=== PATIENT | male | born 1995 | race Caucasian/White ===

== ENCOUNTER 2020-07-28 11:30 | Outpatient (RCR) | payer OTHER, SELFPAY ==
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
[2020-07-15 12:51] VITALS: BMI 18.1
--- NOTE | 2020-07-15 13:26 | HO.PS.ADMBH ---
HPI Chief Complaint: depression Sources of Information: patient interviewed, chart reviewed and crisis/core team assessment reviewed HPI Narrative: Pt is a 24 year-old male with hx of MDD alcohol use who self referred himself to PHP due to increased depression, feeling hopeless, helpless, anhedonia, passive suicidal ideation but denies any plan or intent. He also reports increasing alcohol use. He denies hx of VH/AH. He reports his sleep is poor. He also reports nightmares related to past trauma. HIs appetite is fair. He denies signs of hypomania/aguilar Past Psychiatric History: Inpatient: none OP: none Suicide attempts: none Medication trials: wellbutrin, xanax, prozac Medical Evaluation Reviewed: Yes FORMERLY [facility] Medical History (Updated 07/19/20 @ 15:06 by Pari Linn) No known health problems Diagnostics Vital Signs (24Hr): Body Mass Index 18.1 Meds/Allergies Allergies Allergies Allergy/AdvReac Type Severity Reaction Status Date / Time No Known Allergies Allergy Verified 07/15/20 11:32 Mental Status Exam Mental Status Exam Narrative: Appearance: casually groomed, fair hygiene, in NAD Behavior: calm, cooperative Psychomotor: no agitation or retardation noted Speech: clear, normal rate/rhythm/volume, spontaneous TP: linear TC: no signs of psychosis, hopeless/helpless Mood: depressed Affect:blunted SI:passive denies plano or intent HI:none AH/VH:none Delusions:none Insight/judgment:fair x 2. Memory/cog: alert, oriented x 3. Grossly intact to conversational testing. Assessment & Plan Assessment & Plan (1) MDD (major depressive disorder), recurrent episode, moderate: Status: Acute Code(s): F33.1 - Major depressive disorder, recurrent, moderate Assessment and Plan: 1. Start Lexapro 10mg po daily for depression 2. Periactin 4mg po qhs for nightmares- note that pt is on spironolactone already, but if periactin ineffective can try prazosin. Certification I certify that partial hospital treatment is medically necessary due to the symptoms and problems resulting from the patient's mental illness and the failure to treat the patient at the partial hospital level of care would likely result in the patient requiring inpatient psychiatric care which could not be prevented at a less intensive level of care. Telehealth Telehealth Location of provider rendering services: practice address Location of patient: address on file Patient Identification confirmed using: Name, : Yes Telehealth method: video Patient verbally consented to treatment: Yes Patient verbally consented to billing insurance company: Yes Patient informed of any privacy concerns related to visit: Yes Time spent with patient (mins): 30
--- NOTE | 2020-07-15 14:45 | PC.NURSE ---
case opened in treatment team
--- NOTE | 2020-07-16 08:25 | PC.NURSE ---
Reviewed treatment plan with client He has a therapist and his PCP prescribes his medication. He does not want to get a separate med provider.
--- NOTE | 2020-07-20 16:04 | P.EN_ITS ---
Event Note Date of Service: 07/20/20 Event Note: Pt had a scheduled PHP medication appt 2pm which they did not atte nd.
--- NOTE | 2020-07-21 14:52 | HO.PHPPROGNO ---
Subjective Subjective Date of Service: 07/21/20 Reason For Visit: depression Medication Compliance: Yes Side effects from medications: No Review of Systems Acute medical concerns: No Medical Review of Systems: unchanged Review of Systems Review of Systems Yes all other systems are reviewed and are negative Mental Status Exam Mental Status Exam Patient Appearance: Well Grooomed Patient Orientation: Person, Place, Time and Situation Level of Consciousness: Awake Patient Behavior: Appropriate Mood Description: Calm Affect Description: Appropriate Patient Cognition Impaired: No Ability to Follow Directions: Good Speech Pattern: Clear and Coherent Memory Description: Intact Hallucinations: None Delusions: Not Present Thought Process: Goal Oriented Thought Content: positive for Intact Judgement: Good Judgement and Insight: insight improved Diagnostics Vital Signs (24Hr): Body Mass Index 18.1 Assessment & Plan Assessment & Plan (1) MDD (major depressive disorder), recurrent episode, moderate: Status: Acute Code(s): F33.1 - Major depressive disorder, recurrent, moderate Assessment and Plan: The patient is a 24 year old male patient with a past history of alcohol use disorder and depressive symptoms referred for exacerbation of dysphoria. He was just started on Lexapro to target his depression. So far, he denied side effects but also, he denied major improvement of his dysphoria. So far, he has been taking it for only a few days. We discussed options and he agreed to reasses with the same regimen in the next days. Patient educated on: diagnosis, medication risk/benefits and therapeutic strategies Informed Consent: understands Reason for contiued partial hosp. stay Substantial Risk for: inability to function Certification I certify that partial hospital treatment is medically necessary due to the symptoms and problems resulting from the patient's mental illness and the failure to treat the patient at the partial hospital level of care would likely result in the patient requiring inpatient psychiatric care which could not be prevented at a less intensive level of care. Greater than 50% of the session was spent on counseling and/or coordination of care Discharge Plan Discharge Attending provider: Hasmukh Quarles Medications: New escitalopram oxalate [Lexapro] 10 mg tablet 10 mg PO DAILY Qty: 10 RF: 0 cyproheptadine 4 mg tablet 4 mg PO BEDTIME Qty: 10 RF: 0 No Action estradiol 2 mg Tablet 2 mg PO DAILY RF: 0 bupropion HCl [Wellbutrin XL] 300 mg Tablet Extended Release 24 Hr 300 mg PO DAILY RF: 0 bupropion HCl [Wellbutrin XL] 150 mg Tablet Extended Release 24 Hr 150 mg PO DAILY RF: 0 estradiol 2 mg Tablet 4 mg PO BEDTIME RF: 0 spironolactone 50 mg Tablet 75 mg PO BID RF: 0
--- NOTE | 2020-07-27 14:06 | HO.PHPPROGNO ---
Subjective Subjective Date of Service: 07/27/20 Reason For Visit: depression Interim History: The patient reported improvement of dysphoria with Lexapro. She had a previous script of Prozac a year ago that she has not taken. No safety concerns, content with the current treatment. She admitted sporadic use of alcohol, mostly on weekends. Medication Compliance: Yes Side effects from medications: Yes Review of Systems Review of Systems Yes all other systems are reviewed and are negative Mental Status Exam Mental Status Exam Patient Appearance: Well Grooomed Patient Orientation: Person, Place, Time and Situation Level of Consciousness: Awake and Appropriate Patient Behavior: Appropriate Mood Description: Calm and Appropriate Affect Description: Calm and Appropriate Patient Cognition Impaired: No Ability to Follow Directions: Good Speech Pattern: Clear Memory Description: Intact Hallucinations: None Delusions: Not Present Thought Process: Goal Oriented Thought Content: positive for Intact Judgement: Fair Diagnostics Vital Signs (24Hr): Body Mass Index 18.1 Assessment & Plan Assessment & Plan (1) MDD (major depressive disorder), recurrent episode, moderate: Status: Acute Code(s): F33.1 - Major depressive disorder, recurrent, moderate Assessment and Plan: Stable, continue with Lexapro. Instructed not to take the old script of Prozac. F/U as per protocol Certification I certify that partial hospital treatment is medically necessary due to the symptoms and problems resulting from the patient's mental illness and the failure to treat the patient at the partial hospital level of care would likely result in the patient requiring inpatient psychiatric care which could not be prevented at a less intensive level of care. Greater than 50% of the session was spent on counseling and/or coordination of care Discharge Plan Discharge Attending provider: Hasmukh Quarles Medications: New escitalopram oxalate [Lexapro] 10 mg tablet 10 mg PO DAILY Qty: 10 RF: 0 cyproheptadine 4 mg tablet 4 mg PO BEDTIME Qty: 10 RF: 0 escitalopram oxalate [Lexapro] 10 mg tablet 10 mg PO DAILY Qty: 30 RF: 0 No Action estradiol 2 mg Tablet 2 mg PO DAILY RF: 0 bupropion HCl [Wellbutrin XL] 300 mg Tablet Extended Release 24 Hr 300 mg PO DAILY RF: 0 bupropion HCl [Wellbutrin XL] 150 mg Tablet Extended Release 24 Hr 150 mg PO DAILY RF: 0 estradiol 2 mg Tablet 4 mg PO BEDTIME RF: 0 spironolactone 50 mg Tablet 75 mg PO BID RF: 0 Telehealth Telehealth Location of provider rendering services: practice address Location of patient: address on file Patient Identification confirmed using: Name, : Yes Telehealth method: video Patient verbally consented to treatment: Yes Patient verbally consented to billing insurance company: Yes Patient informed of any privacy concerns related to visit: Yes Time spent with patient (mins): 15
--- NOTE | 2020-07-28 15:15 | PC.NURSE ---
Left message for Norma Melendez re clients discharged from PHP
== END 2020-07-28 23:55 | disposition home or self-care (01) ==
LOC: HO.PHPA 11:30
PROVIDERS: Visit Provider Psychiatry & Neurology Psychiatry
DX: F33.1 Major depressive disorder, recurrent, moderate (principal)
CPT/HCPCS: 90791; 90853; 99212; 99213

== ENCOUNTER 2023-06-13 23:20 | Emergency (ER) | payer OTHER, SELFPAY ==
--- NOTE | ~2023-06-13 | XR_ITS ---
EXAMINATION: XR ABDOMEN KUB CLINICAL INDICATION: Foreign body. COMPARISON: None available. TECHNIQUE: AP view of the abdomen. FINDINGS: The bowel gas pattern is normal with no evidence of ileus or obstruction. No unusual soft tissue calcifications are noted. There is a radiopaque foreign body overlying the rectum measuring up to 8.5 cm in length. The bones are unremarkable. XR/XR KUB IMPRESSION: 1. Radiopaque foreign body overlying the rectum measuring up to 8.5 cm in length. 2. Nonobstructive bowel gas pattern.
[2023-06-13 23:56] VITALS: BP 114/70; PULSE 81; RESP 16; TEMP 36.6; O2SAT 98; BMI 21.5
--- NOTE | 2023-06-14 00:49 | ED.GENADULT ---
HPI - General Adult General Chief complaint: General Medical Stated complaint: Fb in anus Time Seen by Provider: 06/14/23 00:32 Source: patient Mode of arrival: ambulatory Limitations: no limitations History of Present Illness HPI narrative: 27 yo male no PMH was celebrating with his partner using an anal plug when it got lost. this occurred about 1 hour prior to arrival. he has no pain. MD complaint: anal FB Onset (ago): hour(s) (1) Location: genitals Radiation: non-radiation Severity: mild Relieving factors: none Exacerbating factors: none Associated symptoms: denies other symptoms Treatments prior to arrival: none Related Data Home Medications Medication Instructions Recorded Confirmed bupropion HCl 150 mg 24 hr tablet, 150 mg PO DAILY 07/15/20 07/15/20 extended release (Wellbutrin XL) bupropion HCl 300 mg 24 hr tablet, 300 mg PO DAILY 07/15/20 07/15/20 extended release (Wellbutrin XL) estradiol 2 mg tablet 2 mg PO DAILY 07/15/20 07/15/20 estradiol 2 mg tablet 4 mg PO BEDTIME 07/15/20 07/16/20 spironolactone 50 mg tablet 75 mg PO BID 07/15/20 07/15/20 Previous Rx's Medication Instructions Recorded cyproheptadine 4 mg tablet 4 mg PO BEDTIME #10 tabs 07/15/20 escitalopram oxalate 10 mg tablet 10 mg PO DAILY #30 tabs 07/27/20 (Lexapro) Allergies Allergy/AdvReac Type Severity Reaction Status Date / Time No Known Allergies Allergy Verified 06/13/23 23:56 Review of Systems Review of Systems: Constitutional : No Fever, No Chills, No Fatigue ENT/Mouth : No sore throat, No Rhinorrhea Eyes: No Eye Pain, No Swelling, No Redness Cardiovascular : No Chest Pain, No SOB, No Dyspnea on Exertion Respiratory : No Cough, No Sputum Gastrointestinal : No Nausea, No Vomiting, No Diarrhea, No abdominal Pain Genitourinary : No Dysuria, No Urinary Frequency, No Hematuria, Musculoskeletal : No joint pain, No Myalgias, No Joint Swelling Skin : No Skin Lesions, No rash Neuro : No Weakness, No Numbness, No Dizziness, no Headache Psych : No Anxiety/Panic, No Depression All other systems reviewed and are negative [facility] Past Medical History Attestation statement: The following information was validated with the patient. Medical History No known health problems Social History Social History (Updated 06/14/23 @ 00:55 by Rocío Nix DO) Household Members: Other Household Members Other:: Room mate Patient Tobacco Use Status: Tobacco use Unknown Physical Exam ED Vital Signs: Vital Signs - 24 hr 06/13/23 23:56 Temperature 97.9 F Pulse Rate 81 Respiratory Rate 16 Blood Pressure 114/70 Pulse Oximetry 98 Oxygen Delivery Method Room Air BMI result Body Mass Index 21.5 Appearance: Alert. Oriented X3. No acute distress. Eyes: Pupils equal, round and reactive to light. ENT: Pharynx normal. Neck: Normal inspection. Neck supple. CVS: Normal heart rate and rhythm. Pulses normal. Respiratory: No respiratory distress. Breath sounds normal. Abdomen: Soft and nontender. no peritoneal signs Rectal: I can feel soft silicone toy right on entrance of rectal exam - lubricated with significant amount of lube and then using two fingers grasped the edge of the lyons which was flexible and soft and pulled out without issue pateint was in lateral decubitus position right side - tolerated well had no pain. simple removal. Skin: Skin warm and dry. Normal skin color. Normal skin turgor. Extremities: No lower extremity edema. No calf ttp Neuro: Oriented X 3. No motor deficit. No sensory deficit. Course Course Course Narrative: on repeat exam no bleeding feeling fine joking and has no abdominal pain Procedures Foreign Body Removal Time Out Performed: yes Site: rectum Description of foreign body: other (silicon anal plug) Sedation/Analgesia: none Technique: manual removal (was removed easily and felt right on digital exam) Confirmed by:: palpation Complications: none Post-procedure exam: awake, alert Neurovascular: no change from pre-procedure Medical Decision Making Medical Decision Making MDM Narrative: 27 yo male with rectal FB - soft silicone after sexual activity at this time will obtain xray and attempt bedside digital removal and possible conscious sedation if xray shows it is in reach. Patient aware and agrees. Differential Diagnosis Differential Diagnoses: The differential diagnosis associated with the presentation includes rectal FB Independent Interpretation I performed an independent interpretation of an: Plain X-Ray (FB noted) Radiology Impression Discussion of test interpretation with radiology: I have reviewed the radiologist's reading. Independent Historian Clinical information obtained from an independent historian. History obtained from or confirmed by: Spouse Discharge Plan Discharge Clinical Impression: FB anus/rectum Qualifiers: Encounter type: initial encounter Qualified Code(s): T18.5XXA - Foreign body in anus and rectum, initial encounter Patient Disposition: Home, Self-Care Instructions: Rectal Foreign Body (ED) Additional Instructions: you might have scant mucousy blood for the next day or two - dripping blood or blood clots is not normal seek care if this happens. return for fevers and severe abdominal pain. obviously given your rectum a rest for the next couple of weeks then it's okay to resume normal sexual activities. Prescriptions: No Action estradiol 2 mg Tablet 2 mg PO DAILY bupropion HCl [Wellbutrin XL] 300 mg Tablet Extended Release 24 Hr 300 mg PO DAILY bupropion HCl [Wellbutrin XL] 150 mg Tablet Extended Release 24 Hr 150 mg PO DAILY estradiol 2 mg Tablet 4 mg PO BEDTIME spironolactone 50 mg Tablet 75 mg PO BID cyproheptadine 4 mg tablet 4 mg PO BEDTIME Qty: 10 0RF escitalopram oxalate [Lexapro] 10 mg tablet 10 mg PO DAILY Qty: 30 0RF
== END 2023-06-14 01:30 | disposition home or self-care (01) ==
LOC: HO.ED 06-14 01:05
PROVIDERS: Emergency Provider Emergency Medicine
DX: T18.5XXA Foreign body in anus and rectum, initial encounter (principal); W44.8XXA Other foreign body entering into or through a natural orifice, initial encounter; Y93.89 Activity, other specified; Y92.013 Bedroom of single-family (private) house as the place of occurrence of the external cause; Y99.9 Unspecified external cause status
CPT/HCPCS: 74018; 99283; 99284

== ENCOUNTER 2023-11-12 07:33 | Inpatient (IN) | payer OTHER, SELFPAY ==
[2023-11-12 08:01] VITALS: BP 118/71; PULSE 72; RESP 16; TEMP 36.6; O2SAT 98; BMI 23.6
[2023-11-12 08:16] VITALS: RESP 16
--- NOTE | 2023-11-12 08:16 | PC.NURSE ---
Marty comes to the ED today reporting SI with multiple plans. patient reports they attempted to take their life by overdose last night on 4mg Klonopin. Patient reports that they are also willing to jump from high surface. Patient is calm and cooperative, help seeking. Reporting that he is at his wits end and figured they would self present today for help Patient reports they were supposed to start PHP on but felt like they couldnt make it until then. Alert and oriented x4, respirations even and unlabored, skin pwd, no apparent distress noted at this time
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
[2023-11-12 08:47] LABS: MANUAL DIFF FLAG NO
[2023-11-12 08:49] LABS: Eosinophils Absolute Auto 0.3 X10*3/uL (0.0-0.4); Eosinophils Percent Auto 7.9 % (0-4); Hemoglobin 12.3 g/dl (14.0-18.0); Imm Gran Abs Auto 0.01 X10*3/uL (0.00-0.03); Imm Gran Pct Auto 0.3 % (0.0-0.4); Lymphocytes Absolute Auto 1.5 X10*3/uL (1.2-4.9); Lymphocytes Percent Auto 37.6 % (20-40); Mean Corpuscular HGB Conc 34.2 g/dl (31.0-36.0); Mean Corpuscular Volume 96.5 fL (80.0-98.0); Monocytes Absolute Auto 0.4 X10*3/uL (0.1-1.2); Monocytes Percent Auto 10.7 % (2-11); Neutrophils Absolute Auto 1.7 x10*3/uL (2.0-8.3); Neutrophils Percent Auto 42.5 % (45-73); Platelet Count 205 X10*3/uL (160-400); Red Blood Count 3.73 X10*6/uL (4.60-5.80); Red Cell Distribution Width 12.1 % (11.0-16.0); White Blood Count 3.9 X10*3/uL (4.8-10.8)
[2023-11-12 08:58] LABS: Amphetamine Screen Urine Not Detected (Not Detect); Barbiturates, Urine Not Detected (Not Detect); Benzodiazepines Screen Urine Not Detected (Not Detect); Buprenorphine Scr Not Detected (Not Detect); Cannabinoid Screen Urine POSITIVE (Not Detect); Cocaine Screen Urine POSITIVE (Not Detect); Fentanyl, urine Not Detected (Not Detect); Methadone Screen, Urine Not Detected (Not Detect); Opiate Screen Urine Not Detected (Not Detect); Oxycodone Screen Urine Not Detected (Not Detect); Phencyclidine Screen Urine Not Detected (Not Detect)
[2023-11-12 09:01] LABS: Appearance Urine Clear; Color Urine Yellow; Glucose Urine UA Negative (Negative); Leukocyte Esterase Urine Negative (Negative); Nitrite Urine Negative (Negative); PH 6.5 (5.0-9.0); UMIC TRIGGER UACC YES; Urine Blood Negative (Negative); Urine Ketones Trace mg/dL (Negative); Urine Protein 30 (1+) mg/dL (Neg-Trace)
[2023-11-12 09:05] LABS: Alanine Aminotransferase 7 U/L (0-40); Albumin Level 3.9 g/dL (3.5-5.0); Alkaline Phosphatase 50 U/L (39-117); Anion Gap 11 (12-20); Aspartate Amino Transferase 13 U/L (5-37); Bilirubin Total 0.5 mg/dL (0.0-1.0); Blood Urea Nitrogen 10 mg/dL (9-16); Calcium 8.8 mg/dL (8.4-10.2); Carbon Dioxide 27 mmol/L (22-29); Chloride 107 mmol/L (96-108); Creatinine Clr Calc Pharmacy 122.7; Estimated Glomerular Filt Rate > 60; Ethanol < 10 mg/dL; Glucose Random 92 mg/dL (60-115); Potassium 4.1 mmol/L (3.3-5.1); Sodium 141 mmol/L (135-145); Total Protein 6.4 g/dL (6.5-8.0)
[2023-11-12 09:06] LABS: Bacteria Urine None Seen (None Seen); Hyaline Casts Urine 0-2 /LPF (0-2); RBC Urine 0-2 /HPF (0-2); WBC Urine 0-5 /HPF (0-5)
[2023-11-12] MEDS: buPROPion HCl XL 300 MG TAB.ER.24H PO (10:13)
[2023-11-12] MEDS: ARIPiprazole 5 MG TABLET PO (10:13)
[2023-11-12] MEDS: Spironolactone 25 MG TABLET 75 MG PO ×2 (10:13→21:36)
[2023-11-12] MEDS: buPROPion HCl XL 150 MG TAB.ER.24H PO (10:13)
[2023-11-12] MEDS: estradioL 0.5 MG TABLET 2 MG PO (11:07)
--- NOTE | 2023-11-12 13:21 | ECG_ITS ---
Test Reason : CHECK QTC Blood Pressure : / mmHG Vent. Rate : 055 BPM Atrial Rate : 055 BPM P-R Int : 156 ms QRS Dur : 110 ms QT Int : 432 ms P-R-T Axes : 049 081 056 degrees QTc Int : 413 ms Sinus bradycardia Incomplete right bundle branch block Septal infarct , age undetermined Abnormal ECG No previous ECGs available Referred By: Tasha Lozano Electronically Signed By:RIZWAN WHITTAKER MD
[2023-11-12 14:55] LABS: Troponin-I High Sensitivity < 2.7 ng/L (<3.5-35.0)
[2023-11-12 17:30] VITALS: BP 118/73; PULSE 68; RESP 16; TEMP 36.8; O2SAT 100
[2023-11-12 17:31] VITALS: BMI 20.1
--- NOTE | 2023-11-12 18:53 | PC.NURSE ---
Pt is male --> female trans. Goes by the name Kinsey and pronouns she/they.
--- NOTE | 2023-11-12 19:12 | PC.ADMIT ---
Marty Agee who goes by the name ?Kinsey? is a 28 year old male to female transgender person who goes by the pronouns she/they.They were admitted to at 17:00 from [facility] [place] for the treatment of SI. The precipitants of their admission include a self-reported overdose of 4mg of Klonopin. Precipitants of their SI include the recent breakup with their partner, fighting with a lifelong friend, and feeling as if they are not deserving of friends/loved ones because ?they hurt everyone?. Pt was cooperative with the admission process, is help seeking, wants to develop better coping skills + get new meds.Pt rated 10/10 for both anxiety and depression. Pt affect was tearful when discussing recent stressors and otherwise flat. Pt reports poor appetite and sleep ? reports they believe they?ve unintentionally lost 10 lbs the last couple of months due to depression/poor appetite. Pt currently also struggles with substance use. Tox screen positive for cocaine and THC - ?I?ve been abusing adderall, marijuana, and cocaine?. Pt agreed to meet with Addiction nurse for MAT and other resources. Pt reported she is ?bummed? that her suicide attempt failed - ?I can?t even do that right? pt said. Pt reported they will let staff know if SI or HI occurs. No medical issues or physical complaints made. Pt is on 15 min checks and is psych/dual + structured group appropriate. ?
[2023-11-12 19:55] VITALS: BP 106/58; PULSE 63; RESP 16; TEMP 36.5; O2SAT 98
[2023-11-12] MEDS: estradioL 0.5 MG TABLET 4 MG PO (21:33)
[2023-11-12 21:36] VITALS: BP 106/58
[2023-11-13 07:35] VITALS: BP 100/55; PULSE 61; RESP 16; TEMP 36.5; O2SAT 99
[2023-11-13] MEDS: hydrOXYzine HCL 25 MG TABLET PO (08:58)
[2023-11-13] MEDS: buPROPion HCl XL 150 MG TAB.ER.24H PO (08:58)
[2023-11-13] MEDS: Spironolactone 25 MG TABLET 75 MG PO ×2 (08:58→21:13)
[2023-11-13] MEDS: buPROPion HCl XL 300 MG TAB.ER.24H PO (08:58)
[2023-11-13] MEDS: estradioL 0.5 MG TABLET 2 MG PO (08:58)
[2023-11-13] MEDS: ARIPiprazole 5 MG TABLET PO (08:59)
[2023-11-13 09:17] LABS: Alanine Aminotransferase 8 U/L (0-40); Albumin Level 4.3 g/dL (3.5-5.0); Alkaline Phosphatase 56 U/L (39-117); Anion Gap 13 (12-20); Aspartate Amino Transferase 13 U/L (5-37); Bilirubin Total 0.7 mg/dL (0.0-1.0); Blood Urea Nitrogen 12 mg/dL (9-16); Carbon Dioxide 26 mmol/L (22-29); Chloride 105 mmol/L (96-108); Cholesterol 133 mg/dL (<200); Creatinine Clr Calc Pharmacy 99.2; Estimated Glomerular Filt Rate > 60; Glucose Fasting 91 mg/dL (60-99); HDL Cholesterol 42 mg/dL (>40); LDL Cholesterol Calculated 70 mg/dL (<100); Potassium 4.4 mmol/L (3.3-5.1); Sodium 140 mmol/L (135-145); Total Protein 7.3 g/dL (6.5-8.0); Triglycerides 108 mg/dL (<150)
[2023-11-13 09:33] LABS: Calcium 9.9 mg/dL (8.4-10.2)
--- NOTE | 2023-11-13 12:06 | MHC.CLN ---
RE: CONSULT NEW PATIENT HT 5'9 WT 61.7KG IBW 160#+/-10% PT IS 85% IBW INDICATES MILDLY UNDER WT FOR HT; BMI 20.1 WNL PREVIOUS WT HX REVEALS FOLLOWS: 61.7KG (11/12/23)-9% WT LOSS X 5 MONTHS 72.6KG (11/12/23)-7% WT GAIN X 5 MONTHS 68KG (06/13/23) PT REPORTED 10# WT LOSS X COUPLE MONTHS R/T POOR INTAKE NOTED PER NSG: Pt reports poor appetite and sleep ? reports they believe they?ve unintentionally lost 10 lbs the last couple of months due to depression/poor appetite. Pt currently also struggles with substance use. Tox screen positive for cocaine and THC - ?I?ve been abusing adderall, marijuana, and cocaine?. RECENT DRUG ABUSE MAY BE CONTRIBUTOR TO WT LOSS DIET RX: REGULAR-APPROPRIATE REVIEWED LABS-ALL WNL PLAN: RECOMMEND RE-WEIGHT DUE TO WT DISCREPANCY ON 11/12/23; VERIFY ACCURATE WT MONITOR PO INTAKE CLOSELY IF PO INTAKE POOR <25% X 3 DAYS; RECOMMEND ADDING ENSURE PLUS HIGH PROTEIN BID TO PROVIDE 700KCALS, 40G PROTEIN
--- NOTE | 2023-11-13 12:16 | MHC.RECOVRN ---
Received Addiction Consult for amphetamine, cocaine, marijuana. Pt declined to meet with Addiction services.
--- NOTE | 2023-11-13 13:40 | P.HPPS_ITS ---
HPI Date of Service: 11/13/23 Chief Complaint: crisis SI Sources of Information: patient interviewed, chart reviewed and crisis/core team assessment reviewed HPI Subjective Notes: Jones Warning and Conditional Voluntary Narrative: Patient is a 28 year old transgender male to female with hx of who self presented to [facility] [place]/t suicidal ideation with plan to overdose or jump off a high surface secondary to increased depression for the past month. Per crisis report, pt reported a suicide attempt where they took 4mg of Klonopin. Pt reported recent break up in the past month and a falling out with a friend of 12 years. Pt believes they are not worthy of relationships or friends . pt denies HI/VH/AH. Pt's mother stated she is concern pt began to decline when pt was prescribed klonopin. Pt's mother picks up their medication to ensure pt is medication compliant. During admission assessment, patient present alert, oriented, calm and cooperative. Pt reports feeling depressed today;pt stated, I push away people who care about me. I do things to hurt people like betray their trust or say the wrong thing. So I decided it would be better for people to not have to deal with me anymore . Pt stated, I always want to . It's pretty normal for me. I just don't act on it . Pt denies hx of SA. They report hx of cutting, has not cut in over 2 years. Pt reports being medication compliant. Pt reports drinking 5 beers a day, using a gram of cocaine on the weekends and buying Adderall . UTOX positive for cocaine and marijuana. Pt reports this is their first inpatient psychiatric hospitalization; denies hx of detox or respite. They report hx of attending [place] at [facility] pt had intake scheduled for 11/15/2023. 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 Substance History: drink 5 beers a day, cocaine on the weekends, marijuana daily, Adderall daily. Trauma History: denies Diagnostics Vital Signs (24Hr): Vital Signs - 24 hr 11/12/23 17:30 11/12/23 19:55 11/12/23 21:36 Temperature 98.2 F 97.7 F Pulse Rate 68 63 Respiratory Rate 16 16 Blood Pressure 118/73 106/58 L 106/58 L Pulse Oximetry 100 98 Oxygen Delivery Method Room Air Room Air 11/13/23 07:35 Temperature 97.7 F Pulse Rate 61 Respiratory Rate 16 Blood Pressure 100/55 L Pulse Oximetry 99 Oxygen Delivery Method Room Air BMI result Body Mass Index 20.1 Labs 11/12/23 08:31 11/13/23 08:29 Labs: Laboratory Results - last 48 hr 11/12/23 11/12/23 11/13/23 08:31 08:43 08:29 WBC 3.9 L RBC 3.73 L Hgb 12.3 L Hct 36.0 L MCV 96.5 MCH 33.0 MCHC 34.2 RDW 12.1 Plt Count 205 MPV 10.0 Immature Gran % (Auto) 0.3 Neut % (Auto) 42.5 L Lymph % (Auto) 37.6 [place] % (Auto) 10.7 Eos % (Auto) 7.9 H Baso % (Auto) 1.0 Lymph # (Auto) 1.5 [place] # (Auto) 0.4 Eos # (Auto) 0.3 Baso # (Auto) 0.0 Abs Immat Gran (auto) 0.01 Absolute Neuts (auto) 1.7 L Absolute Nucleated RBC 0.000 Nucleated RBC % (auto) 0.0 Sodium 141 140 Potassium 4.1 4.4 Chloride 107 105 Carbon Dioxide 27 26 Anion Gap 11 L 13 BUN 10 12 Creatinine 0.88 0.95 Estim Creat Clear Calc 122.7 99.2 Estimated GFR > 60 > 60 Random Glucose 92 Fasting Glucose 91 Calcium 8.8 9.9 D Total Bilirubin 0.5 0.7 AST 13 13 ALT 7 8 Alkaline Phosphatase 50 56 Troponin I High Sens < 2.7 Total Protein 6.4 L 7.3 Albumin 3.9 4.3 Triglycerides 108 Cholesterol 133 LDL Cholesterol, Calc 70 HDL Cholesterol 42 Urine Color Yellow Urine Appearance Clear Urine pH 6.5 Ur Specific [place] 1.020 Urine Protein 30 (1+) H Urine Glucose (UA) Negative Urine Ketones Trace Urine Blood Negative Urine Nitrite Negative Ur Leukocyte Esterase Negative Urine RBC 0-2 Urine WBC 0-5 Ur Squamous Epith Cells 6-10 Urine Bacteria None Seen Hyaline Casts 0-2 Urine Opiates Screen Not Detected Ur Buprenorphine Scrn Not Detected Ur Oxycodone Screen Not Detected Urine Methadone Screen Not Detected Urine Fentanyl Screen Not Detected Ur Barbiturates Screen Not Detected Ur Phencyclidine Scrn Not Detected Ur Amphetamines Screen Not Detected U Benzodiazepines Scrn Not Detected Urine Cocaine Screen POSITIVE H U Marijuana (THC) Screen POSITIVE H Ethyl Alcohol < 10 Meds/Allergies Meds Home Medications ?Medication ?Instructions ?Recorded ?Confirmed ?Type bupropion HCl 150 mg 24 hr tablet, 150 mg PO DAILY 07/15/20 11/12/23 History extended release (Wellbutrin XL) bupropion HCl 300 mg 24 hr tablet, 300 mg PO DAILY 07/15/20 11/12/23 History extended release (Wellbutrin XL) estradiol 2 mg tablet 2 mg PO DAILY 07/15/20 11/12/23 History estradiol 2 mg tablet 4 mg PO BEDTIME 07/15/20 11/12/23 History spironolactone 50 mg tablet 75 mg PO BID 07/15/20 11/12/23 History aripiprazole 5 mg tablet 5 mg PO DAILY 11/12/23 11/12/23 History progesterone micronized 200 mg 200 mg PO DAILY 11/12/23 11/12/23 History capsule Allergies Allergies Allergy/AdvReac Type Severity Reaction Status Date / Time No Known Allergies Allergy Verified 11/12/23 08:02 Mental Status Exam Mental Status Exam Narrative: Pt is alert and oriented; behavior is cooperative and calm; dressed in casual attire; mood is described as depressed ; eye contact appropriate; Speech is normal rate, volume and not pressured; thought process is organized; Thought content is on tx; otherwise pertinent to relevant topics and without any delusional content, paranoid ideations or grandiosity; denies HI/VH/AH. Pt reports passive suicidal ideation; which they report is their baseline. Assessment & Plan Assessment & Plan (1) MDD (major depressive disorder), recurrent episode, moderate: Status: Acute Code(s): F33.1 - Major depressive disorder, recurrent, moderate (2) Alcohol use disorder: Status: Acute Code(s): F10.90 - Alcohol use, unspecified, uncomplicated (3) Cocaine use disorder: Status: Acute Code(s): F14.10 - Cocaine abuse, uncomplicated (4) Stimulant use disorder: Status: Acute Code(s): F15.90 - Other stimulant use, unspecified, uncomplicated Plan Patient is a 28 year old transgender male to female with hx of who self presented to [facility] [place]/t suicidal ideation with plan to overdose or jump off a high surface secondary to increased depression for the past month. Plan: CV 15 minute safety checks Continue home medications encourage groups CIWA obtain collateral discharge planning Patient educated on: diagnosis, medication risk/benefits, substance abuse and therapeutic strategies Informed Consent: understands Reason for continued inpatient stay Substantial Risk for: harm to self and med/psych decompensation Statement Statement: I have reviewed the history and physical and performed a pertinent examination on my patient. No changes have occurred unless specified. If the History and Physical was not performed prior to admission, the Hospitalist's service will be consulted for completing the admission physical. Time Spent With Patient Time: Total time managing care of this patient today _60___ minutes.
--- NOTE | 2023-11-13 15:50 | PC.NURSE ---
3 day notice signed with patient. Lennox SALGADO informed via text and Glenn CABA and Derek Cates MD informed via email.
[2023-11-13 20:00] VITALS: BP 117/65; PULSE 64; RESP 14; TEMP 36.9; O2SAT 99
[2023-11-13 21:10] VITALS: BP 100/64; PULSE 61; RESP 16
[2023-11-13] MEDS: estradioL 0.5 MG TABLET 4 MG PO (21:11)
[2023-11-14 07:50] VITALS: BP 112/65; PULSE 62; RESP 16; TEMP 36.6; O2SAT 99
--- NOTE | 2023-11-14 08:18 | P.PNPSI_ITS ---
Subjective Subjective Date of Service: 11/14/23 Reason For Visit: crisis SI Subjective Notes: 3 Day Interim History: Reviewed with Dr. Quarles. Active on unit, attending groups. Pt reports feeling anxious today; pt stated, I signed a 3 day notice because I want to go home. I don't feel comfortable here. I've calmed down and let things settle. I just want to go stay with my mom for a while . Pt denies SI/HI/VH/AH. 3 day up on 11/16/2023. Medication Compliance: Yes Side effects from medications: No Attending Groups: Yes Review of Systems Constitutional: Reports as per HPI Eyes: Reports as per HPI Reports as per HPI Cardiovascular: Reports as per HPI Respiratory: Reports as per HPI Gastrointestinal: Reports as per HPI Genitourinary: Reports as per HPI Musculoskeletal: Reports as per HPI Skin/Breast: Reports as per HPI Reports as per HPI Psychiatric: Reports as per HPI Endocrine: Reports as per HPI Hematologic/Lymphatic: Reports as per HPI Allergic/Immunologic: Reports as per HPI Mental Status Exam Mental Status Exam Narrative: Pt is alert and oriented; behavior is cooperative and calm; dressed in casual attire; mood is described as anxious ; eye contact appropriate; Speech is normal rate, volume and not pressured; thought process is organized; Thought content is on tx; otherwise pertinent to relevant topics and without any delusional content, paranoid ideations or grandiosity; denies SI/HI/VH/AH. Diagnostics Vital Signs (24Hr): Vital Signs - 24 hr 11/13/23 20:00 11/13/23 21:10 11/14/23 07:50 Temperature 98.5 F 97.9 F Pulse Rate 64 61 62 Respiratory Rate 14 16 16 Blood Pressure 117/65 100/64 112/65 Pulse Oximetry 99 99 Oxygen Delivery Method Room Air Room Air BMI result Body Mass Index 20.1 Labs 11/12/23 08:31 11/13/23 08:29 Labs: Laboratory Results - last 48 hr 11/12/23 11/12/23 11/13/23 08:31 08:43 08:29 WBC 3.9 L RBC 3.73 L Hgb 12.3 L Hct 36.0 L MCV 96.5 MCH 33.0 MCHC 34.2 RDW 12.1 Plt Count 205 MPV 10.0 Immature Gran % (Auto) 0.3 Neut % (Auto) 42.5 L Lymph % (Auto) 37.6 [place] % (Auto) 10.7 Eos % (Auto) 7.9 H Baso % (Auto) 1.0 Lymph # (Auto) 1.5 [place] # (Auto) 0.4 Eos # (Auto) 0.3 Baso # (Auto) 0.0 Abs Immat Gran (auto) 0.01 Absolute Neuts (auto) 1.7 L Absolute Nucleated RBC 0.000 Nucleated RBC % (auto) 0.0 Sodium 141 140 Potassium 4.1 4.4 Chloride 107 105 Carbon Dioxide 27 26 Anion Gap 11 L 13 BUN 10 12 Creatinine 0.88 0.95 Estim Creat Clear Calc 122.7 99.2 Estimated GFR > 60 > 60 Random Glucose 92 Fasting Glucose 91 Calcium 8.8 9.9 D Total Bilirubin 0.5 0.7 AST 13 13 ALT 7 8 Alkaline Phosphatase 50 56 Troponin I High Sens < 2.7 Total Protein 6.4 L 7.3 Albumin 3.9 4.3 Triglycerides 108 Cholesterol 133 LDL Cholesterol, Calc 70 HDL Cholesterol 42 Urine Color Yellow Urine Appearance Clear Urine pH 6.5 Ur Specific [place] 1.020 Urine Protein 30 (1+) H Urine Glucose (UA) Negative Urine Ketones Trace Urine Blood Negative Urine Nitrite Negative Ur Leukocyte Esterase Negative Urine RBC 0-2 Urine WBC 0-5 Ur Squamous Epith Cells 6-10 Urine Bacteria None Seen Hyaline Casts 0-2 Urine Opiates Screen Not Detected Ur Buprenorphine Scrn Not Detected Ur Oxycodone Screen Not Detected Urine Methadone Screen Not Detected Urine Fentanyl Screen Not Detected Ur Barbiturates Screen Not Detected Ur Phencyclidine Scrn Not Detected Ur Amphetamines Screen Not Detected U Benzodiazepines Scrn Not Detected Urine Cocaine Screen POSITIVE H U Marijuana (THC) Screen POSITIVE H Ethyl Alcohol < 10 Medications Medications Current Medications Acetaminophen (Acetaminophen 325 Mg Tablet) 650 mg PO Q6H PRN PRN Reason: Headache/Pain Mild Scale (1-3) Al Hydroxide/Mg Hydroxide (Magnesium Hydrox/Alum Hydrox 30 Ml Oral.Susp) 30 ml PO Q6H PRN PRN Reason: Heartburn/Nausea Aripiprazole (Aripiprazole 5 Mg Tablet) 5 mg PO DAILY [facility] Last Admin: 11/13/23 08:59 Dose: 5 mg Bupropion HCl (Bupropion Hcl Xl 150 Mg Tab.Er.24h) 150 mg PO DAILY [facility] Last Admin: 11/13/23 08:58 Dose: 150 mg Bupropion HCl (Bupropion Hcl Xl 300 Mg Tab.Er.24h) 300 mg PO DAILY [facility] Last Admin: 11/13/23 08:58 Dose: 300 mg Estradiol (Estradiol 0.5 Mg Tablet) 4 mg PO BEDTIME [facility] Last Admin: 11/13/23 21:11 Dose: 4 mg Estradiol (Estradiol 0.5 Mg Tablet) 2 mg PO DAILY [facility] Last Admin: 11/13/23 08:58 Dose: 2 mg Hydroxyzine HCl (Hydroxyzine Hcl 25 Mg Tablet) 25 mg PO Q6H PRN PRN Reason: Anxiety Last Admin: 11/13/23 08:58 Dose: 25 mg Lorazepam (Lorazepam 1 Mg Tablet) 1 mg PO Q4H PRN PRN Reason: CIWA 6-12 Lorazepam (Lorazepam 1 Mg Tablet) 2 mg PO Q4H PRN PRN Reason: CIWA 13 and above Magnesium Hydroxide (Milk Of Magnesia 30 Ml Oral.Susp) 30 ml PO DAILY PRN PRN Reason: Constipation Nicotine (Nicotine 21 Mg Patch.Td24) 21 mg TRANSDERMA DAILY [facility] Last Admin: 11/13/23 09:03 Dose: Not Given Nicotine Polacrilex (Nicotine Polacrilex 2 Mg Gum) 4 mg BUCCAL Q2H PRN PRN Reason: Nicotine Cravings Spironolactone (Spironolactone 25 Mg Tablet) 75 mg PO BID [facility]; Protocol Last Admin: 11/13/23 21:13 Dose: 75 mg Trazodone HCl (Trazodone Hcl 50 Mg Tablet) 50 mg PO BEDTIME MRX1 PRN PRN Reason: Insomnia Allergies Allergies Allergy/AdvReac Type Severity Reaction Status Date / Time No Known Allergies Allergy Verified 11/12/23 08:02 Assessment & Plan Assessment & Plan (1) MDD (major depressive disorder), recurrent episode, moderate: Status: Acute Code(s): F33.1 - Major depressive disorder, recurrent, moderate (2) Alcohol use disorder: Status: Acute Code(s): F10.90 - Alcohol use, unspecified, uncomplicated (3) Cocaine use disorder: Status: Acute Code(s): F14.10 - Cocaine abuse, uncomplicated (4) Stimulant use disorder: Status: Acute Code(s): F15.90 - Other stimulant use, unspecified, uncomplicated Plan Patient is a 28 year old transgender male to female with hx of who self presented to [facility] ER d/t suicidal ideation with plan to overdose or jump off a high surface secondary to increased depression for the past month. Plan: CV 15 minute safety checks Continue home medications encourage groups RICHARD obtain collateral discharge planning 11/13: Active on unit, attending groups. Pt reports feeling anxious today; pt stated, I signed a 3 day notice because I want to go home. I don't feel comfortable here. I've calmed down and let things settle. I just want to go stay with my mom for a while . Pt denies SI/HI/VH/AH. 3 day up on 11/16/2023. Patient educated on: diagnosis and medication risk/benefits Informed Consent: understands Reason for continued inpatient stay Substantial Risk for: med/psych decompensation Time Spent With Patient Time: Total time managing care of this patient today _20___ minutes.
[2023-11-14] MEDS: Spironolactone 25 MG TABLET 75 MG PO ×2 (08:44→22:15)
[2023-11-14] MEDS: ARIPiprazole 5 MG TABLET PO (08:44)
[2023-11-14] MEDS: buPROPion HCl XL 150 MG TAB.ER.24H PO (08:44)
[2023-11-14] MEDS: estradioL 0.5 MG TABLET 2 MG PO (08:45)
[2023-11-14] MEDS: buPROPion HCl XL 300 MG TAB.ER.24H PO (08:45)
[2023-11-14 20:00] VITALS: BP 106/72; PULSE 63; RESP 16; TEMP 36.9; O2SAT 95
[2023-11-14 22:15] VITALS: BP 110/68
[2023-11-14] MEDS: traZODone HCL 50 MG TABLET PO (22:17)
[2023-11-14] MEDS: estradioL 0.5 MG TABLET 4 MG PO (23:52)
[2023-11-15 07:40] VITALS: BP 138/67; PULSE 61; RESP 16; TEMP 36.8; O2SAT 99
[2023-11-15 08:36] VITALS: BP 138/67
[2023-11-15] MEDS: buPROPion HCl XL 300 MG TAB.ER.24H PO (08:36)
[2023-11-15] MEDS: buPROPion HCl XL 150 MG TAB.ER.24H PO (08:36)
[2023-11-15] MEDS: Spironolactone 25 MG TABLET 75 MG PO ×2 (08:36→22:01)
[2023-11-15] MEDS: ARIPiprazole 5 MG TABLET PO (08:36)
--- NOTE | 2023-11-15 09:05 | HO.PSYCHPN ---
Subjective Subjective Date of Service: 11/15/23 Reason For Visit: crisis SI Subjective Notes: 3 Day Interim History: Reviewed with Dr. Quarles. Pt reports feeling good today; pt stated, I feel better than when I came in. I think I needed time to be away from everything. I'm glad I didn't . What I did was stupid . Pt denies SI/HI/VH/AH. Pt reports they plan on staying with their mother for a week before returning to their apartment. Pt plans on following up with their outpatient providers and has an intake for PHP. 3 day up on 11/16/2023. Medication Compliance: Yes Side effects from medications: No Attending Groups: Yes Review of Systems Constitutional: Reports as per HPI Eyes: Reports as per HPI Reports as per HPI Cardiovascular: Reports as per HPI Respiratory: Reports as per HPI Gastrointestinal: Reports as per HPI Genitourinary: Reports as per HPI Musculoskeletal: Reports as per HPI Skin/Breast: Reports as per HPI Reports as per HPI Psychiatric: Reports as per HPI Endocrine: Reports as per HPI Hematologic/Lymphatic: Reports as per HPI Allergic/Immunologic: Reports as per HPI Mental Status Exam Mental Status Exam Narrative: Pt is alert and oriented; behavior is cooperative and calm; dressed in casual attire; mood is described as good ; eye contact appropriate; Speech is normal rate, volume and not pressured; thought process is organized; Thought content is on discharge; otherwise pertinent to relevant topics and without any delusional content, paranoid ideations or grandiosity; denies SI/HI/VH/AH. Diagnostics Vital Signs (24Hr): Vital Signs - 24 hr 11/14/23 20:00 11/14/23 22:15 11/15/23 07:40 Temperature 98.5 F 98.2 F Pulse Rate 63 61 Respiratory Rate 16 16 Blood Pressure 106/72 110/68 138/67 Pulse Oximetry 95 99 Oxygen Delivery Method Room Air Room Air 11/15/23 08:36 Temperature Pulse Rate Respiratory Rate Blood Pressure 138/67 Pulse Oximetry Oxygen Delivery Method BMI result Body Mass Index 20.1 Labs 11/12/23 08:31 11/13/23 08:29 Labs: Laboratory Results - last 48 hr 11/13/23 08:29 Sodium 140 Potassium 4.4 Chloride 105 Carbon Dioxide 26 Anion Gap 13 BUN 12 Creatinine 0.95 Estim Creat Clear Calc 99.2 Estimated GFR > 60 Fasting Glucose 91 Calcium 9.9 D Total Bilirubin 0.7 AST 13 ALT 8 Alkaline Phosphatase 56 Total Protein 7.3 Albumin 4.3 Triglycerides 108 Cholesterol 133 LDL Cholesterol, Calc 70 HDL Cholesterol 42 Medications Medications Current Medications Acetaminophen (Acetaminophen 325 Mg Tablet) 650 mg PO Q6H PRN PRN Reason: Headache/Pain Mild Scale (1-3) Al Hydroxide/Mg Hydroxide (Magnesium Hydrox/Alum Hydrox 30 Ml Oral.Susp) 30 ml PO Q6H PRN PRN Reason: Heartburn/Nausea Aripiprazole (Aripiprazole 5 Mg Tablet) 5 mg PO DAILY [facility] Last Admin: 11/15/23 08:36 Dose: 5 mg Bupropion HCl (Bupropion Hcl Xl 150 Mg Tab.Er.24h) 150 mg PO DAILY [facility] Last Admin: 11/15/23 08:36 Dose: 150 mg Bupropion HCl (Bupropion Hcl Xl 300 Mg Tab.Er.24h) 300 mg PO DAILY [facility] Last Admin: 11/15/23 08:36 Dose: 300 mg Estradiol (Estradiol 0.5 Mg Tablet) 4 mg PO BEDTIME [facility] Last Admin: 11/14/23 23:52 Dose: 4 mg Estradiol (Estradiol 0.5 Mg Tablet) 2 mg PO DAILY [facility] Last Admin: 11/14/23 08:45 Dose: 2 mg Hydroxyzine HCl (Hydroxyzine Hcl 25 Mg Tablet) 25 mg PO Q6H PRN PRN Reason: Anxiety Last Admin: 11/13/23 08:58 Dose: 25 mg Lorazepam (Lorazepam 1 Mg Tablet) 1 mg PO Q4H PRN PRN Reason: CIWA 6-12 Lorazepam (Lorazepam 1 Mg Tablet) 2 mg PO Q4H PRN PRN Reason: CIWA 13 and above Magnesium Hydroxide (Milk Of Magnesia 30 Ml Oral.Susp) 30 ml PO DAILY PRN PRN Reason: Constipation Nicotine (Nicotine 21 Mg Patch.Td24) 21 mg TRANSDERMA DAILY [facility] Last Admin: 11/15/23 08:38 Dose: Not Given Nicotine Polacrilex (Nicotine Polacrilex 2 Mg Gum) 4 mg BUCCAL Q2H PRN PRN Reason: Nicotine Cravings Spironolactone (Spironolactone 25 Mg Tablet) 75 mg PO BID [facility]; Protocol Last Admin: 11/15/23 08:36 Dose: 75 mg Trazodone HCl (Trazodone Hcl 50 Mg Tablet) 50 mg PO BEDTIME MRX1 PRN PRN Reason: Insomnia Last Admin: 11/14/23 22:17 Dose: 50 mg Allergies Allergies Allergy/AdvReac Type Severity Reaction Status Date / Time No Known Allergies Allergy Verified 11/12/23 08:02 Assessment & Plan Assessment & Plan (1) MDD (major depressive disorder), recurrent episode, moderate: Status: Acute Code(s): F33.1 - Major depressive disorder, recurrent, moderate (2) Alcohol use disorder: Status: Acute Code(s): F10.90 - Alcohol use, unspecified, uncomplicated (3) Cocaine use disorder: Status: Acute Code(s): F14.10 - Cocaine abuse, uncomplicated (4) Stimulant use disorder: Status: Acute Code(s): F15.90 - Other stimulant use, unspecified, uncomplicated Plan Patient is a 28 year old transgender male to female with hx of who self presented to [facility] ER d/t suicidal ideation with plan to overdose or jump off a high surface secondary to increased depression for the past month. Plan: CV 15 minute safety checks Continue home medications encourage groups [facility] obtain collateral discharge planning 11/13: Active on unit, attending groups. Pt reports feeling anxious today; pt stated, I signed a 3 day notice because I want to go home. I don't feel comfortable here. I've calmed down and let things settle. I just want to go stay with my mom for a while . Pt denies SI/HI/VH/AH. 3 day up on 11/16/2023. 11/14: Pt reports feeling good today; pt stated, I feel better than when I came in. I think I needed time to be away from everything. I'm glad I didn't . What I did was stupid . Pt denies SI/HI/VH/AH. Pt reports they plan on staying with their mother for a week before returning to their apartment. Pt plans on following up with their outpatient providers and has an intake for [facility]. 3 day up on 11/16/2023. Patient educated on: diagnosis, medication risk/benefits and therapeutic strategies Reason for continued inpatient stay Substantial Risk for: stable for discharge Time Spent With Patient Time: Total time managing care of this patient today _20___ minutes.
[2023-11-15] MEDS: estradioL 0.5 MG TABLET 2 MG PO (12:51)
--- NOTE | 2023-11-15 15:49 | P.DS_ITS ---
DS: Providers Provider Date of Service: 11/16/23 Date of admission: 11/12/23 15:38 Date of discharge: 11/16/23 Primary care physician: Unknown Physician Admitting clinician: Debo Cates Attending physician on admission: Hasmukh Quarles Consults: 11/12/23 17:56 Addiction Medicine Routine Consulting Provider: Addiction Covering Reason for consultation: amphetamine, cocaine, marijuana Has provider been notified: Yes Attending physician on discharge: Hasmukh Quarles DS: Diagnosis Discharge Diagnosis (1) MDD (major depressive disorder), recurrent episode, moderate: Status: Acute (2) Alcohol use disorder: Status: Acute (3) Cocaine use disorder: Status: Acute (4) Stimulant use disorder: Status: Acute DS: Medications Discharge Medications Home Medications: Home Medications ?Medication ?Instructions ?Recorded ?Confirmed bupropion HCl 150 mg 24 hr tablet, 150 mg PO DAILY 07/15/20 11/12/23 extended release (Wellbutrin XL) bupropion HCl 300 mg 24 hr tablet, 300 mg PO DAILY 07/15/20 11/12/23 extended release (Wellbutrin XL) estradiol 2 mg tablet 2 mg PO DAILY 07/15/20 11/12/23 estradiol 2 mg tablet 4 mg PO BEDTIME 07/15/20 11/12/23 spironolactone 50 mg tablet 75 mg PO BID 07/15/20 11/12/23 aripiprazole 5 mg tablet 5 mg PO DAILY 11/12/23 11/12/23 progesterone micronized 200 mg 200 mg PO DAILY 11/12/23 11/12/23 capsule Mental Status Exam Mental Status Exam Narrative: Pt is alert and oriented; behavior is cooperative and calm; dressed in casual attire; mood is described as good ; eye contact appropriate; Speech is normal rate, volume and not pressured; thought process is organized; Thought content is on discharge; otherwise pertinent to relevant topics and without any delusional content, paranoid ideations or grandiosity; denies SI/HI/VH/AH. Data Data Completed and Pending Completed studies during hospitalization [Text1]: 11/12/23 11/12/23 11/13/23 08:31 08:43 08:29 WBC 3.9 L RBC 3.73 L Hgb 12.3 L Hct 36.0 L MCV 96.5 MCH 33.0 MCHC 34.2 RDW 12.1 Plt Count 205 MPV 10.0 Immature Gran % (Auto) 0.3 Neut % (Auto) 42.5 L Lymph % (Auto) 37.6 [place] % (Auto) 10.7 Eos % (Auto) 7.9 H Baso % (Auto) 1.0 Lymph # (Auto) 1.5 [place] # (Auto) 0.4 Eos # (Auto) 0.3 Baso # (Auto) 0.0 Abs Immat Gran (auto) 0.01 Absolute Neuts (auto) 1.7 L Absolute Nucleated RBC 0.000 Nucleated RBC % (auto) 0.0 Sodium 141 140 Potassium 4.1 4.4 Chloride 107 105 Carbon Dioxide 27 26 Anion Gap 11 L 13 BUN 10 12 Creatinine 0.88 0.95 Estim Creat Clear Calc 122.7 99.2 Estimated GFR > 60 > 60 Random Glucose 92 Fasting Glucose 91 Calcium 8.8 9.9 D Total Bilirubin 0.5 0.7 AST 13 13 ALT 7 8 Alkaline Phosphatase 50 56 Troponin I High Sens < 2.7 Total Protein 6.4 L 7.3 Albumin 3.9 4.3 Triglycerides 108 Cholesterol 133 LDL Cholesterol, Calc 70 HDL Cholesterol 42 Urine Color Yellow Urine Appearance Clear Urine pH 6.5 Ur Specific [place] 1.020 Urine Protein 30 (1+) H Urine Glucose (UA) Negative Urine Ketones Trace Urine Blood Negative Urine Nitrite Negative Ur Leukocyte Esterase Negative Urine RBC 0-2 Urine WBC 0-5 Ur Squamous Epith Cells 6-10 Urine Bacteria None Seen Hyaline Casts 0-2 Urine Opiates Screen Not Detected Ur Buprenorphine Scrn Not Detected Ur Oxycodone Screen Not Detected Urine Methadone Screen Not Detected Urine Fentanyl Screen Not Detected Ur Barbiturates Screen Not Detected Ur Phencyclidine Scrn Not Detected Ur Amphetamines Screen Not Detected U Benzodiazepines Scrn Not Detected Urine Cocaine Screen POSITIVE H U Marijuana (THC) Screen POSITIVE H Ethyl Alcohol < 10 DS: Summary Hospital Course Hospital Course: Patient is a 28 year old transgender male to female with hx of who self presented to [facility] ER d/t suicidal ideation with plan to overdose or jump off a high surface secondary to increased depression for the past month. Per crisis report, pt reported a suicide attempt where they took 4mg of Klonopin. Pt reported recent break up in the past month and a falling out with a friend of 12 years. Pt believes they are not worthy of relationships or friends . pt denies HI/VH/AH. Pt's mother stated she is concern pt began to decline when pt was prescribed klonopin. Pt's mother picks up their medication to ensure pt is medication compliant. During admission assessment, patient present alert, oriented, calm and front desk coordinator perative. Pt reports feeling depressed today;pt stated, I push away people who care about me. I do things to hurt people like betray their trust or say the wrong thing. So I decided it would be better for people to not have to deal with me anymore . Pt stated, I always want to . It's pretty normal for me. I just don't act on it . Pt denies hx of SA. They report hx of cutting, has not cut in over 2 years. Pt reports being medication compliant. Pt reports drinking 5 beers a day, using a gram of cocaine on the weekends and buying Adderall . UTOX positive for cocaine and marijuana. Pt reports this is their first inpatient psychiatric hospitalization; denies hx of detox or respite. They report hx of attending PHP at [facility]; pt had intake scheduled for 11/15/2023. During hospital course, CV 15 minute safety checks Continue home medications encourage groups [facility] obtain collateral discharge planning Active on unit, attending groups. Pt reports feeling anxious today; pt stated, I signed a 3 day notice because I want to go home. I don't feel comfortable here. I've calmed down and let things settle. I just want to go stay with my mom for a while . Pt denies SI/HI/VH/AH. 3 day up on 11/16/2023. Pt reports feeling good today; pt stated, I feel better than when I came in. I think I needed time to be away from everything. I'm glad I didn't . What I did was stupid . Pt denies SI/HI/VH/AH. Pt reports they plan on staying with their mother for a week before returning to their apartment. Pt plans on following up with their outpatient providers and has an intake for PHP. 3 day up on 11/16/2023. Time spent discussing smoking cessation with patient: 3 to 10 minutes Status at Discharge Cognitive/behavioral status at discharge: Patient was interviewed prior to discharge and found to be fully oriented and without SI or HI. Patient has insight and demonstrates good judgment in terms of wanting to pursue treatment. Patient has a safety plan that includes presenting to the closest ER or calling 911 if feeling unsafe. Functional status at discharge: independent ambulation Overall status at discharge: patient is back to baseline Time Spent with Patient Time attestation: Total time managing care of this patient today _20___ minutes. Time spent: Less than 30 minutes Discharge Plan Discharge Anticipated Discharge Date/Time: 11/16/23 10:00 Patient Disposition: Home, Self-Care Discharge Diagnosis: MDD, cocaine use d/o, alcohol use d/o, stimulant use d/o Referrals: Norma Irby (Psychiatry) [Other] - 1 Week (*Please follow up with your prescriber regarding your next appointment. ) Partial Hospitalization Program (PHP) [Other] - 1 Week (*Please reach out to intake staff at [facility] regarding your intake appointment. You are currently second on the waiting list fo begin the program. ) Norma Melendez (Therapy) [Other] - 11/21/23 4:00 pm (IN PERSON APPOINTMENT) [facility] [Provider Group] - 1 Week (Patient does not have a PCP. [facility] added to EMR.) Discharge Medications: Continued estradiol 2 mg Tablet 2 mg PO DAILY bupropion HCl [Wellbutrin XL] 300 mg Tablet Extended Release 24 Hr 300 mg PO DAILY bupropion HCl [Wellbutrin XL] 150 mg Tablet Extended Release 24 Hr 150 mg PO DAILY estradiol 2 mg Tablet 4 mg PO BEDTIME spironolactone 50 mg Tablet 75 mg PO BID progesterone micronized 200 mg capsule 200 mg PO DAILY aripiprazole 5 mg tablet 5 mg PO DAILY Discharge Orders: Discharge Order (Routine); Ordered 11/16/23 Ordered By: Debo Cates Diet: Regular diet Activity on Discharge: As tolerated Stand Alone Forms: Patient Portal Discharge page, Community Support Print Language: Korean Care Plan Goals: Maintain mood and safe behaviors Take medications as prescribed Continue to pursue sobriety Practice coping skills Continue with outpatient providers and reach out to them as needed Health Concerns: Mood stability and behaviors Sobriety Plan of Treatment: Follow up with your PCP, psychiatric provider and other outpatient providers regarding above concerns Take medications as prescribed Assessment: Patient was interviewed prior to discharge and found to be fully oriented and wi thout SI or HI. Patient has insight and demonstrates good judgment in terms of wanting to pursue treatment. Patient has a safety plan that includes presenting to the closest ER or calling 911 if feeling unsafe. Discharge Date/Time: 11/16/23 10:00
[2023-11-15 20:00] VITALS: BP 114/66; PULSE 64; TEMP 36.8; O2SAT 96
[2023-11-15] MEDS: estradioL 0.5 MG TABLET 4 MG PO (21:57)
[2023-11-15 22:01] VITALS: BP 114/66
[2023-11-16 08:00] VITALS: BP 132/66; PULSE 72; TEMP 36.4; O2SAT 99
[2023-11-16] MEDS: estradioL 0.5 MG TABLET 2 MG PO (08:50)
[2023-11-16 08:51] VITALS: BP 132/68
[2023-11-16] MEDS: Spironolactone 25 MG TABLET 75 MG PO (08:51)
[2023-11-16] MEDS: buPROPion HCl XL 300 MG TAB.ER.24H PO (08:52)
[2023-11-16] MEDS: ARIPiprazole 5 MG TABLET PO (08:52)
[2023-11-16] MEDS: buPROPion HCl XL 150 MG TAB.ER.24H PO (08:52)
[2023-11-16] MEDS: Naloxone HCl Nasal TAKE HOME 4 MG SPRAY 8 MG NOSTRILALT (08:53)
== END 2023-11-16 10:00 | disposition home or self-care (01) | DRG 751 ==
LOC: HO.ED 15:51 → HO.PADLT16 16:42
PROVIDERS: Physician Assistant Medical; Admitting Provider Registered Nurse; Emergency Provider Emergency Medicine; Visit Provider Registered Nurse
DX: F33.1 Major depressive disorder, recurrent, moderate (principal); R45.851 Suicidal ideations; F64.0 Transsexualism; F10.90 Alcohol use, unspecified, uncomplicated; F14.10 Cocaine abuse, uncomplicated; F15.90 Other stimulant use, unspecified, uncomplicated; Z87.891 Personal history of nicotine dependence; Z79.899 Other long term (current) drug therapy
CPT/HCPCS: 36415; 80053; 80061; 80307; 81001; 81003; 84484; 85025; 93005; 99285; S9485

== ENCOUNTER → 2023-11-12 13:21 | Outpatient (BNV) | payer OTHER, SELFPAY | PROVIDERS: Admitting Provider Registered Nurse; Emergency Provider Emergency Medicine; Visit Provider Internal Medicine Cardiovascular Disease | DX: R94.31 Abnormal electrocardiogram [ECG] [EKG] (principal) | CPT/HCPCS: 93010 ==

== ENCOUNTER → 2023-11-12 15:38 | Outpatient (BNV) | payer OTHER, SELFPAY | PROVIDERS: Admitting Provider Registered Nurse; Emergency Provider Emergency Medicine; Responsible Provider Registered Nurse; Visit Provider Registered Nurse | DX: F33.1 Major depressive disorder, recurrent, moderate (principal); F14.10 Cocaine abuse, uncomplicated; F10.90 Alcohol use, unspecified, uncomplicated; F15.90 Other stimulant use, unspecified, uncomplicated | CPT/HCPCS: 99231; 99232; 99233 ==

== ENCOUNTER → 2023-11-26 10:30 | Outpatient (BNV) | payer OTHER, SELFPAY | PROVIDERS: Visit Provider Psychiatry & Neurology Psychiatry | DX: F31.89 Other bipolar disorder (principal); F34.1 Dysthymic disorder; F15.14 Other stimulant abuse with stimulant-induced mood disorder; F12.20 Cannabis dependence, uncomplicated; F10.10 Alcohol abuse, uncomplicated; F48.9 Nonpsychotic mental disorder, unspecified; F69 Unspecified disorder of adult personality and behavior | CPT/HCPCS: 90792; 99213 ==

== ENCOUNTER 2023-12-07 10:15 | Outpatient (RCR) | payer OTHER, SELFPAY ==
[2023-11-26 14:12] VITALS: BMI 21.1
[2023-11-26 14:13] VITALS: BP 117/70; PULSE 64; TEMP 36.6
--- NOTE | 2023-11-26 15:14 | PC.ADMIT ---
Patient is a 28 year old trans-gendered female who uses They/She pronouns and goes by the name of Kinsey . Patient was referred to [facility] level of care by [facility] inpatient behavioral health unit where she was admitted after self presenting to the emergency room after taking 4 mg of Klonopin in a suicide attempt the night before. Patient told this video games storywriter that when she woke up the next morning she, freaked out and went to the ER. She reports recent stresses include not getting along with her roommate and she had a falling out with her best friend. Also in September a relationship she was in ended abruptly. 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 She is taking time off from work using her work sick time to work on her mental health and attend [facility]. Prior to coming to the hospital she stated, I woke up and I realized the overdose did not work and freaked out and drove to the ER. Patient reports she overdosed on 4mg of Klonopin. I'm still living with the roommate that I had a falling out with . Patient reports they are being civil to each other. Patient stated he owns the house they live in and he can afford to live in the house on his own. Patient is alert and oriented x4. Calm and cooperative. She is alert and oriented x4. Thoughts are clear and logical. She denied SI, No HI. She was given a copy of her safety plan if needed. Wants to work on her self esteem and learning to be kinder to herself and love herself. She stated she is planning on quitting Marijuana as she feels she smokes too much. Reports using cocaine weekly using a gram with friends however has stopped using since November 09, 2023. She also drinks alcohol currently drinking 3 drinks 3 days a week for the past month. Prior to that she was drinking 2 drinks two times a week. Patient medications reconciled with patient and patient's discharge paperwork from inpatient hospitalization. She reports taking medications as prescribed.
--- NOTE | 2023-11-26 20:50 | P.HPPSP_ITS ---
HPI Date of Service: 11/26/23 Chief Complaint: MDD,depression Sources of Information: patient interviewed, chart reviewed and crisis/core team assessment reviewed HPI Narrative: Patient is a 28 yo trans female with history of chronic depression, mood dysregulation, gender dysphoria, low self esteem, chronic SIB, high anxiety and polysubstance abuse who was referred to [facility] as step-down from [facility]. Prior to hospitalization, he reports having struggled with mood regulation, manic symptoms, dysphoria with worsening SI, precipitated by relationship stressors and heavy stimulant and cocaine abuse Past Psychiatric History: Inpatient x1: 10/2023 [facility] PHP x1: 2020 (remote) [facility] No detox/rehab admissions Suicide attempts x 1 overdose 2023 h/o SIBs namely restricting as punishment and sometimes punches himself (since childhood) Denies any developmental issues, LD, ADHD dx, no IEP Therapist: Norma Plunkett (for 10 yrs) Outpatient prescriber: Norma Irby (for 4 yrs) Previous medication trials: Wellbutrin, Xanax, Prozac, Lexapro CURRENT MEDICATIONS: Abilify 5 mg qam Wellbutrin XL 450 mg qam Spirinolactone 75 mg BID Estradiol 2 mg in AM and 4 mg QHS Progesterone 200 mg qd [facility] Medical History (Updated 11/26/23 @ 22:48 by Sarita Samson MD) Depression No known health problems Narrative: No chronic health conditions, or significant illnesses or injuries in the past No surgeries No seizures No concussions or TBI Ht: 5'9 Wt: 135 lbs ALL: NKDA Family History: Father had severe chronic alcoholism, from cirrhosis No suicides in family Social History: Unmarried, no children Owns his own home (house) in [place], has 1 roommate Primary supports: his mother who lives in [place] 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 Substance History: Adderall/stimulant abuse - recent use (past 1-2 months) heavier use ~ 30 mg/d, last use 2 weeks ago Cocaine use - weekly, since early 20s, last use 2 weeks ago Alcohol use - 1-2 drinks x3-5 times/wk for past few months. Prior to this, had been drinking in moderation for past several years (1-2 drinks about 1-2x/wk). Remote history of binge drinking w black-outs back in college. Cannabis dependence - daily ~1/2 gram/day since age 14 Trauma History: Father from complication related to alcoholism in 2021 Diagnostics Vital Signs (24Hr): Vital Signs - 24 hr 11/26/23 14:13 Temperature 97.9 F Pulse Rate 64 Blood Pressure 117/70 BMI result Body Mass Index 21.1 Meds/Allergies Meds Home Medications ?Medication ?Instructions ?Recorded ?Confirmed ?Type bupropion HCl 150 mg 24 hr tablet, 150 mg PO DAILY 07/15/20 11/26/23 History extended release (Wellbutrin XL) bupropion HCl 300 mg 24 hr tablet, 300 mg PO DAILY 07/15/20 11/26/23 History extended release (Wellbutrin XL) estradiol 2 mg tablet 2 mg PO DAILY 07/15/20 11/26/23 History estradiol 2 mg tablet 4 mg PO BEDTIME 07/15/20 11/26/23 History spironolactone 50 mg tablet 75 mg PO BID 07/15/20 11/26/23 History aripiprazole 5 mg tablet 5 mg PO DAILY 11/12/23 11/26/23 History progesterone micronized 200 mg 200 mg PO DAILY 11/12/23 11/26/23 History capsule Allergies Allergies Allergy/AdvReac Type Severity Reaction Status Date / Time No Known Allergies Allergy Verified 11/12/23 08:02 Mental Status Exam Mental Status Exam Narrative: Alert, oriented, in no acute distress. Calm, cooperative, engaged. No psychomotor agitation or neurovegetative retardation. Eye contact maintained. Mood depressed, affect variable, dysthymic, subdued, no notable lability. Speech normal. Thought process scattered, linear, coherent. Thought content related to stressors, poor esteem, interpersonal hyperemotionality, some transient helplessness and hopelessness, denies SI, intention or plan. Denies any aggressive ideation. No paranoia or delusional content elicited. No evidence of psychosis. Insight and judgment fair but adequate. Assessment & Plan Assessment & Plan (1) Other bipolar disorder: Status: Acute Code(s): F31.89 - Other bipolar disorder Assessment and Plan: Mood dysregulation +/- SIMD (illicit substance, hormones) vs character pathology r/o Bipolar II Disorder (2) Dysthymia: Status: Acute Code(s): F34.1 - Dysthymic disorder (3) Other stimulant abuse with stimulant-induced mood disorder: Status: Acute Code(s): F15.14 - Other stimulant abuse with stimulant-induced mood disorder Assessment and Plan: Cocaine and amphetamine Rx drugs (4) Cannabis use disorder, moderate, dependence: Status: Acute Code(s): F12.20 - Cannabis dependence, uncomplicated (5) Alcohol use disorder, mild, abuse: Status: Acute Code(s): F10.10 - Alcohol abuse, uncomplicated (6) Mental and behavioral problem: Status: Acute Code(s): F48.9 - Nonpsychotic mental disorder, unspecified; F69 - Unspecified disorder of adult personality and behavior Assessment and Plan: 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 r/o PD Plan Admit to PHP VS reviewed: adán, BP 117/70;?64 bpm continue other regular medications Discussed possibly increasing Abilify for further benefit (if ineffective/poorly tolerated will consider mood stabilization with another SGA vs lithium, AEDs specifically lamotrigine also considered though may complicate hormone therapy Consider treatment options to support reduction/abstaining from substance use Patient might be a good candidate for DBT Routine lab work ordered EKG, routine for baseline QTc for medication considerations UDS as indicated MassPat reviewed Continue to monitor as per protocol Patient educated on: diagnosis, medication risk/benefits and substance abuse Informed Consent: understands Reason for continued partial hosp. stay Substantial Risk for: inability to function, rapid decompensation and med/psych decompensation Certification I certify that partial hospital treatment is medically necessary due to the symptoms and problems resulting from the patient's mental illness and the failure to treat the patient at the partial hospital level of care would likely result in the patient requiring inpatient psychiatric care which could not be prevented at a less intensive level of care. Time Spent With Patient Time: Total time managing care of this patient today __60__ minutes.
[2023-11-29 14:44] LABS: Amphetamine Screen Urine Not Detected (Not Detect); Barbiturates, Urine Not Detected (Not Detect); Benzodiazepines Screen Urine Not Detected (Not Detect); Buprenorphine Scr Not Detected (Not Detect); Cannabinoid Screen Urine POSITIVE (Not Detect); Cocaine Screen Urine Not Detected (Not Detect); Methadone Screen, Urine Not Detected (Not Detect); Opiate Screen Urine Not Detected (Not Detect); Oxycodone Screen Urine Not Detected (Not Detect); Phencyclidine Screen Urine Not Detected (Not Detect)
[2023-11-29 15:00] LABS: Fentanyl, urine Not Detected (Not Detect)
--- NOTE | 2023-11-29 16:37 | HO.PHP ---
Client's case has been opened and reviewed in team.
--- NOTE | 2023-12-03 16:11 | HO.PHP ---
For the purpose of this documentation, Marty prefers to go by Kinsey and utilizes the pronouns she/her. [facility] staff member followed up with Kinsey due to Kinsey making concerning comments around wanting to . Kinsey disclosed that she is struggling with negative self- talk but has no plan or intent to act on anything. PHP staff member and Kinsey discussed the issue with the roommate, which is causing Kinsey to struggle with self-depricating thoughts. [facility] staff member provided Kinsey with prompts on how to communicate her needs effectively to her roommate. Kinsey appeared receptive and noted that she is safe and will be in attendance to program tomorrow.
--- NOTE | 2023-12-07 11:53 | HO.PHPPROGNO ---
Subjective Subjective Date of Service: 12/07/23 Reason For Visit: MDD,depression Interim History: Patient seen for follow-up, anticipating discharge at the end of program today.? Things are still uncomfortable with my roommate, but I just try to stay out of the way . Reports no acute issues or concerns. Medication compliant, medications well-tolerated. Denies any adverse effects.? Mood is stable.? Denies any hopelessness or SI. Denies thoughts of harming self or others at this time. Denies any aggressive ideation or HI. Denies any paranoia or AH or VH. Sleep, appetite, energy stable. Medication Compliance: Yes Side effects from medications: No Attending Groups: Yes Review of Systems Acute medical concerns: No Mental Status Exam Mental Status Exam Narrative: Alert, oriented, in no acute distress. Calm, cooperative. Mood stable, affect appropriate. Speech normal. Thought process linear, coherent, more goal-directed. Thought content related to stressors, future-oriented, denies any helplessness, hopelessness or SI.? No aggressive ideation or HI. No paranoia or delusional content elicited. No evidence of psychosis. Insight and judgment fair-good. Diagnostics Vital Signs (24Hr): BMI result Body Mass Index 21.1 Assessment & Plan Assessment & Plan (1) Other bipolar disorder: Status: Acute Code(s): F31.89 - Other bipolar disorder (2) Dysthymia: Status: Acute Code(s): F34.1 - Dysthymic disorder (3) Other stimulant abuse with stimulant-induced mood disorder: Status: Acute Code(s): F15.14 - Other stimulant abuse with stimulant-induced mood disorder (4) Cannabis use disorder, moderate, dependence: Status: Acute Code(s): F12.20 - Cannabis dependence, uncomplicated (5) Alcohol use disorder, mild, abuse: Status: Acute Code(s): F10.10 - Alcohol abuse, uncomplicated (6) Mental and behavioral problem: Status: Acute Code(s): F48.9 - Nonpsychotic mental disorder, unspecified; F69 - Unspecified disorder of adult personality and behavior Plan Discharge from [facility] Continue regular medications Refills sent to pharmacy Will defer further medication management to outpatient provider *Safety plan reviewed *Discharge diagnoses, treatment course, discharge plan have been reviewed with patient (including medication regime, medication management, potential side effects) as well as treatment rationale were also revisited *Discharge paperwork signed and given to patient, copy sent for scanning to chart Patient educated on: diagnosis, medication risk/benefits and substance abuse Informed Consent: understands Reason for contiued partial hosp. stay Substantial Risk for: inability to function, rapid decompensation and med/psych decompensation Certification I certify that partial hospital treatment is medically necessary due to the symptoms and problems resulting from the patient's mental illness and the failure to treat the patient at the partial hospital level of care would likely result in the patient requiring inpatient psychiatric care which could not be prevented at a less intensive level of care. Total time managing care of this patient today __30__ minutes. Discharge Plan Discharge Attending provider: Sarita Samson Medications: Continued estradiol 2 mg Tablet 2 mg PO DAILY bupropion HCl [Wellbutrin XL] 300 mg Tablet Extended Release 24 Hr 300 mg PO DAILY bupropion HCl [Wellbutrin XL] 150 mg Tablet Extended Release 24 Hr 150 mg PO DAILY estradiol 2 mg Tablet 4 mg PO BEDTIME spironolactone 50 mg Tablet 75 mg PO BID progesterone micronized 200 mg capsule 200 mg PO DAILY aripiprazole 5 mg tablet 5 mg PO DAILY Stand Alone Forms: Patient Portal Discharge page Patient Education: Mood Disorders (DC) Print Language: Syriac
== END 2023-12-07 23:59 | disposition home or self-care (01) ==
LOC: HO.PHPA 10:15
PROVIDERS: Visit Provider Psychiatry & Neurology Psychiatry
DX: F31.89 Other bipolar disorder (principal); F34.1 Dysthymic disorder; F48.9 Nonpsychotic mental disorder, unspecified; F69 Unspecified disorder of adult personality and behavior; F15.14 Other stimulant abuse with stimulant-induced mood disorder; F12.20 Cannabis dependence, uncomplicated; F10.10 Alcohol abuse, uncomplicated; Z79.899 Other long term (current) drug therapy
CPT/HCPCS: 80307; 90791; 90853